=== PATIENT | male | born 1985 | race Caucasian/White ===

== ENCOUNTER 2022-06-22 22:09 | Outpatient (CLI) | payer SELFPAY | END 2022-06-22 22:10 | disposition home or self-care (01) | LOC: AMB 06-24 17:11 | PROVIDERS: Visit Provider Family Medicine | DX: R53.1 Weakness (principal); M62.838 Other muscle spasm; M25.511 Pain in right shoulder | CPT/HCPCS: A0998 ==

== ENCOUNTER 2024-04-08 11:21 | Emergency (ER) | payer OTHER, SELFPAY ==
[2024-04-08 11:25] VITALS: BP 118/75; PULSE 94; RESP 18; TEMP 37; O2SAT 96; BMI 21.0
--- NOTE | 2024-04-08 11:34 | ED_ITS ---
HPI - General Adult General Date Seen: 04/08/24 Chief complaint: Back Injury/Pain Stated complaint: back pain - injury at work Time Seen by Provider: 04/08/24 11:33 History of Present Illness HPI narrative: This is a 38-year-old male presenting to the ER today for pain in his back. It began yesterday while he was at work and got progressively worse yesterday evening and overnight. . 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 He does do lot of bending, twisting lifting. In particular he needs to move their roles of fluid that way about 100 lb. Known specific known injury but he thinks he might have twisted his back when moving a feral yesterday. If no fall. No blunt trauma. No injury at home. His nursing triage note indicates the pain started between his shoulder blades but that is not quite accurate. It started inferior to the shoulder blades in the central portion of his lower thoracic spine (he shows me during exam minutes roughly the level of T10-T12 and radiates from there down at the lumbar spine in particular just to the right of the midline on the right lumbar paraspinous muscles). It is worse whenever he twists his torso which limits his ability to rotate. It does not wrap around to the front of his abdomen or but onto his groin or testicles. The pain does not radiate down his legs. No associated numbness or weakness in his legs. Urination and bowel function have been normal. No fevers. He is here with his father who does have a long history of low back pain. The patient has never had previous pain were surgery on his back. He is not currently on any medications. No history of coagulopathy. No history of diabetes or immunosuppression. He is not yet taking anything for his pain. Related Data Home Medications ?Medication ?Instructions ?Recorded ?Confirmed albuterol 90 mcg/actuation aerosol mcg inhalation 04/08/24 inhaler Previous Rx's ?Medication ?Instructions ?Recorded cyclobenzaprine 10 mg tablet 10 mg PO TID PRN muscle spasm #14 04/08/24 tabs hydrocodone 5 mg-acetaminophen 325 1 tab PO Q4-6H PRN pain #14 tabs 04/08/24 mg tablet ibuprofen 600 mg tablet 600 mg PO Q8H PRN #20 tabs 04/08/24 Allergies Allergy/AdvReac Type Severity Reaction Status Date / Time No Known Drug Allergies Allergy Verified 04/08/24 11:30 Exam Narrative: Exam Narrative: Constitutional: Appears well-developed and well-nourished. Alert. Conversant. Non toxic. Father attentively at his side. HENT: Head: Atraumatic. Nose: Nose normal. Mouth/Throat: Oral mucosa is clear and moist. no trismus. Pharynx normal. Tonsils symmetric. No tonsillar enlargement, erythema, or exudate. Eyes: Conjunctivae normal. EOM normal. Pupils equal, round, and reactive to light. No scleral icterus. Neck: Normal range of motion. Neck supple. No tracheal deviation present. Cardiovascular: Normal rate, regular rhythm. No gallop. No friction rub. No murmur heard. Symmetric radial artery pulses Pulmonary/Chest: Effort normal. No stridor. No respiratory distress. No wheezes. No rales. No rhonchi . No tenderness. Abdominal: Soft. Bowel sounds normal. No distension. No mass. No tenderness. No rebound. No guarding. Musculoskeletal: Normal inspection of his back except for he does seem to have a visible swelling of his right lumbar paraspinous muscles were it appears to be spasming . I think the muscle is very visible because he has a very slender body habitus. He is directly tender over that paraspinous muscle. He has no midline tenderness or step-off of the cervical, thoracic, or lumbar spine. Posterior sacrum, SI joints, and posterior pelvis is nontender. Pelvis is stable. RUE: Normal range of motion. No tenderness. No deformity LUE: Normal range of motion. No tenderness. No deformity RLE: Normal range of motion. No edema. No tenderness. No deformity LLE: Normal range of motion. No edema. No tenderness. No deformity Neurological: Alert and oriented to person, place, and time. Normal strength. CN II-VII intact. No sensory deficit. GCS eye subscore is 4. GCS verbal subscore is 5. GCS motor subscore is 6. Normal coordination Sensory: Normal light touch sensation bilaterally on the anteromedial thigh (L3), medial malleolus (L4), dorsal first web space (L5), lateral malleolus (S1). Strength: 5/5 strength hip flexors (L3) on the rig ht and left 5/5 strength in the quadriceps (L4) on t he right and left 5/5 strength in the tibialis anterior 5/5 strength in the EHL (L5) on the righ t and left 5/5 strength in the gastrocnemius (S1) o n the right and left 5/5 strength in the hamstring on the rig ht and left Negative straight leg raise bilaterally. Skin: Skin is warm and dry. No rash noted. No pallor. Normal capillary refill. Psychiatric: Normal mood. Normal affect. Const: Vital Signs, click to edit/add: Vital Signs - 24 hr 04/08/24 11:25 Temperature 98.6 F Pulse Rate [Right Pulse Oximeter] 94 Respiratory Rate 18 Blood Pressure [Ri ght Upper Arm] 118/75 Pulse Oximetry 96 Oxygen Delivery Me thod Room Air Course Vital Signs Vital signs: Initial Vital Signs Temperature 98.6 F 04/08/24 11:25 Temperature Source Temporal Artery Scan 04/08/24 11:25 Pulse Rate 94 04/08/24 11:25 Respiratory Rate 18 04/08/24 11:25 Blood Pressure 118/75 04/08/24 11:25 Blood Pressure Mean 89 04/08/24 11:25 Blood Pressure Position Sitting 04/08/24 11:25 Pulse Oximetry 96 04/08/24 11:25 Oxygen Delivery Method Room Air 04/08/24 11:25 Vital Signs Temperature 98.6 F 04/08/24 11:25 Pulse Rate 94 04/08/24 11:25 Respiratory Rate 18 04/08/24 11:25 Blood Pressure 118/75 04/08/24 11:25 Pulse Oximetry 96 04/08/24 11:25 Oxygen Delivery Method Room Air 04/08/24 11:25 Temperature 98.6 F 04/08/24 11:25 Pulse Rate 94 04/08/24 11:25 Respiratory Rate 18 04/08/24 11:25 Blood Pressure 118/75 04/08/24 11:25 Pulse Oximetry 96 04/08/24 11:25 Oxygen Delivery Method Room Air 04/08/24 11:25 Medications Administered Medications: Discontinued Medications Generic Name Dose Route Start Last Admin Trade Name Freq PRN Reason Stop Dose Admin Hydrocodone Bitart/Acetaminophen 1 tab 04/08/24 12:14 04/08/24 12:29 Hydrocodone-Acetamin 5-325 Mg 1 Tab PO 04/08/24 12:15 1 tab ONCE ONE Administration Cyclobenzaprine HCl 10 mg 04/08/24 12:14 04/08/24 12:29 Cyclobenzaprine Hcl 10 Mg Tablet PO 04/08/24 12:15 10 mg ONCE ONE Administration Ibuprofen 600 mg 04/08/24 12:30 04/08/24 12:28 Ibuprofen 200 Mg Tablet PO 04/08/24 12:31 600 mg ONCE ONE Administration Medical Decision Making MDM Narrative Medical decision making narrative: This patient presented with back pain. Broad differential considered. The patient did not sustain any penetrating or blunt trauma, therefore x-rays are not necessary due to the low likelihood of fracture or subluxation. No red flag symptoms to suggest CT and/or MRI is indicated at this point. The patient has not had a fever, saddle/perineal anesthesia, bilateral foot numbness, or bowel or bladder dysfunction. There is no clinical evidence of cauda equina syndrome, discitis, spinal/epidural space hematoma or epidural abscess. Differential would also include kidney stone, it referred pain from gallbladder, aortic dissection, among others. The neurological exam is normal and the patient's symptoms seem consistent with a musculoskeletal issues and significant muscle spasm. He is quite tender over the right lumbar paraspinous muscles and does seem to have some visible muscle spasm there on exam. At this point I do not think he needs advanced imaging with CT or MRI. Pain has improved with interventions in the emergency department. The patient will be discharged with pain medications to use as directed. Ice or heat to the back and stretching exercises. No heavy lifting, bending or twisting. Return if increasing pain, numbness, weakness, or bowel or bladder dysfunction. The patient was advised to schedule follow-up with their primary doctor within 2-3 days to re-assess symptoms. Return precautions reviewed and questions answered. Prescriptions for ibuprofen 600 mg t.i.d., Flexeril 10 mg t.i.d. p.r.n., and Swisshome 1 tablet p.o. Q 4-6 hours p.r.n. opiate and sedation precautions reviewed. Discussed anticipated outpatient course, precautions for activities, need for follow-up. Precautions for return to the ER. Discharge Plan Discharge Clinical Impression: Back pain Patient Disposition: Home, Self-Care Condition: Stable Instructions: Back Pain (ED) Additional Instructions: As we discussed, to treat your back pain try to use ice packs or warm packs for 20 minutes every couple of hours. Try to use gentle activity and stretching to help stretch out the muscles in your back. Use ibuprofen or Tylenol as her 1st step for pain relief. If that is not adequate, use the muscle relaxer. Be careful with muscle relaxers because they can cause drowsiness and dizziness. If muscle x-rays are also not adequate, use the prescription opiate (Swisshome ). Use caution with Swisshome because it causes drowsiness, sedation, constipation, and can be addictive. Please take to light activity. No bending or twisting or lifting more than 5 lb. Notify your employer about your back problem Today. For not completely improved within the next 5-7 days, please recheck with your regular doctor ( or the [facility] if your employer indicates that is where he should go). as we discussed, please come back to the ER right away if you have any problems; especially if you have worsening or severe pain, numbness or weakness down her leg, trouble with bowel or bladder, pain wrapping around to the front of your chest or abdomen, fever. Prescriptions: New ibuprofen 600 mg tablet 600 mg PO Q8H PRNQty: 20 0RF hydrocodone-acetaminophen 5-325 mg tablet 1 tab PO Q4-6H PRN (Reason: pain) Qty: 14 0RF cyclobenzaprine 10 mg tablet 10 mg PO TID PRN (Reason: muscle spasm) Qty: 14 0RF No Action albuterol 90 mcg/actuation aerosol inhalation Stand Alone Forms: [facility] Info Instructions
[2024-04-08] MEDS: IBUPROFEN 200 MG TABLET 600 MG PO (12:28)
[2024-04-08] MEDS: CYCLOBENZAPRINE HCL 10 MG TABLET PO (12:29)
[2024-04-08] MEDS: HYDROCODONE-ACETAMIN 5-325 MG 1 TAB PO (12:29)
== END 2024-04-08 13:06 | disposition home or self-care (01) ==
LOC: ED 12:31
PROVIDERS: Emergency Provider Emergency Medicine
DX: M54.9 Dorsalgia, unspecified (principal)
CPT/HCPCS: 99283; 99284; A9270

== ENCOUNTER 2025-01-29 07:35 | Emergency (ER) | payer OTHER, SELFPAY ==
--- OUTSIDE RECORDS SUMMARY | 2025-01-29 07:37 | XMS_ITS | Clinical Summary ---
Author Organization [facility] Address [address] [place] [id number] Care Team Providers Care Ventilating Engineer Name Role Phone Juju Oleary MD Primary Care Provider [phone] Allergies No known active allergies Medications * This document contains information received from the source organization and may not represent a complete record from that organization. NebulizerIndicati ons:Mild intermittent asthma with acute exacerbation (HC) Nebulizer neb kit x 1dx [id number] 1 Device 7 Active fluticasone (FLOVENT HFA) 110 mcg/Actuation inhalerIndication s:Moderate persistent asthma with exacerbation (HC) Inhale 1 Puff by mouth 2 times daily. 1 Inhaler 7 Active albuterol HFA (PROAIR HFA) 90 mcg/actuation inhalerIndication s:Moderate persistent asthma without complication (HC) Inhale 2 Puffs by mouth every 4 hours if needed. Use with spacer 1 Inhaler 5 8 Active naproxen (NAPROSYN) 500 mg tabletIndications :Acute bilateral low back pain without sciatica Take 1 tablet by mouth 2 times daily with meals. 30 tablet 1 9 Active cyclobenzaprine (FLEXERIL) 5 mg tabletIndications :Acute bilateral low back pain without sciatica Take 1-2 tablets by mouth 3 times daily if needed for Muscle Spasm. 30 tablet 9 Active albuterol-ipratro pium (DUONEB) (2.5-0.5 mg) in 3 mL NEBULIZATION solutionIndicatio ns:Moderate persistent asthma with exacerbation (HC) Inhale 3 mL via a nebulizer every 6 hours. 1 box 0 Active gabapentin (NEURONTIN) 100 mg capsuleIndication s:Pain in testicle, unspecified laterality Take 1 Capsule (100 mg) by mouth 3 times daily. 90 Capsule 1 1 Active meloxicam 15 mg tabletIndications :Pain in testicle, unspecified laterality Take 1 Tablet (15 mg) by mouth once daily. 30 Tablet 2 1 Active fluticasone propionate (FLOVENT DISKUS) 100 mcg/actuation inhalerIndication s:Moderate persistent asthma with exacerbation (HC) Inhale 1 Puff by mouth 2 times daily. 60 Each 5 2 Active tolterodine (DETROL LA) 2 mg Extended-Release capsuleIndication s:Pelvic floor dysfunction Take 1 Capsule (2 mg) by mouth once daily. 30 Capsule 11 3 Active Active Problems Problem Noted Date Diagnosed Date Smoker 11/02/2015 Anxiety 03/06/2011 Unspecified asthma(493.90) 01/29/2011 Encounters Date Type Department Care Team Description 01/29/2025 Nurse Triage [facility] [address] [place] [address] Juju Oleary MD Breathing Problem from Last 3 Months Immunizations Immunization Administration Dates Next Due Hepatitis B, Unspecified 06/08/1998 Influenza A (H1N1), Inactivated 12/21/2009 MMR 06/08/1998 Pneumococcal Poly,23-Valent (Pneumovax) 03/21/2012 Td (Age >=7 Years) 06/08/1998 Td, Preservative Free (age > = 7 Years) 03/31/2019 Tdap 06/09/2017, 1,07/23/2010,2009,05/11/2007 Family History Medical History Relation Name Comments Diabetes Brother half brother Cancer Father pancreatic canc er Relation Name Status Comments Brother Father Social History Tobacco Use Types Packs/Day Years Used Date Smoking Tobacco: Every Day Cigarettes Smokeless Tobacco: Never Tobacco Cessation:Ready to Q uit: No; Counseling Given: Yes Comments:declined Alcohol Use Standard Drinks/Week Comments Yes 28 (1 standard drink = 0.6 oz pu re alcohol) PHQ-2 Answer Date Recorded PHQ-2 TOTAL SCORE 1 05/29/2021 Social Connections Answer Date Recorded Frequency of Communication with Friends and Fami ly Not on file 10/28/2021 Financial Resource Strain Answer Date R ecorded Difficulty of Paying Living Expenses Not on file 10/28/2021 Difficulty of Paying Living Expenses Not on file 10/28/2021 Sex and Gender Information Value Date Recorded Sex Assigned at Not on file 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 Gender Identity Not on file Sexual Orientation Not on file Occupation Industry Job Start Date Job End Date Not on file Not on file Not on file Not on file Obstetrics History Last Filed Vital Signs Vital Sign Reading Time Taken Comments Blood Pressure 128/74 02/10/2023 6:03 PM CDT Pulse 81 02/10/2023 6:03 PM CDT Temperature 36.7 C (98.1 F) 02/10/2023 6:03 PM CDT Respiratory Rate 16 02/10/2023 6:03 PM CDT Oxygen Saturation 99% 02/10/2023 6:03 PM CDT Inhaled Oxygen Concentration - - Weight 70.3 kg (155 lb) 02/10/2023 6:03 PM CDT Height 182.9 cm (6') 02/10/2023 6:03 PM CDT Body Mass Index 21.02 02/10/2023 6:03 PM CDT Plan of Treatment Health Maintenance Due Date Last Done Comments Pneumococcal series for age 6-49 (2 of 2 - PCV) 03/21/2013 03/21/2012 Lipids for age 35-44 2021 Depression screening for age 12+ 05/29/2022 05/29/2021, 09/03/2019, 08/31/2019, Additional history exists BMI (ht and wt on same day) for age 18+ 12/04/2022 12/04/2021, 08/01/2020, 07/25/2020, Additional history exists COVID-19 vaccine series ( season) 2024 Influenza Vaccine (Season Ended) 2025 Tetanus booster 03/31/2029 03/31/2019, 05/28, 02/24/2011, Additional history exists Tdap Completed 06/09/2017, 01/28, 07/23/2010, Additional history exists Hepatitis C screening for ag e 18-79 Completed 01/17/2018 HIV for age 15-65 Completed 05/29/2021, , 01/07/2017 Procedures Procedure Name Priority Date/Time Associated Diagnosis Comments ANTI HIV 1/2 Routine 05/29/2021 11:10 AM CDT Urinary frequency ANTI HCV Routine 01/17/2018 5:22 PM CDT Screen for STD (sexually transmitted disease) from Last 3 Months or Most Recently Relevant to Health Maintenance Results * ANTI HIV 1/2 (05/29/2021 11:10 AM CDT) [facility] HIV-1/HIV-2 ANTIBODY Non-Reacti ve Non-Reacti ve 05/29/2021 6:14 PM CDT [facility] Comment:HIV-1 p24 and HIV-1/ HIV-2 Ab not detected. Blood BLOOD SPECIMEN / Unknown Venipuncture / Unknown 05/29/2021 11:10 AM CDT 05/29/2021 11:10 AM CDT us Vivian Xavier MD SEND OUTS Final Resul t [facility] [address] [place] [address], * ANTI HCV (01/17/2018 5:22 PM CDT) [facility] HEPATITIS C ANTIBODY Non-React tara Non-React tara 01/18/2018 5:21 PM CDT [facility] Comment:Antibodies to HCV no t detected; does not exclude the possibility of exposure to HCV. Blood BLOOD SPECIMEN / Unknown Venipuncture / Unknown 01/17/2018 5:22 PM CDT 01/17/2018 5:22 PM CDT us William Willard DO SEND OUTS Final Result [facility] [address] [place] [address], from Last 3 Months or Most Recently Relevant to Health Maintenance Insurance [address] [place] [id number] [place] [id number] [place] [id number] [place] [address] Advance Directives * Full Code (Latest Code Status on File) Date Activated Date Inactivated Comments 05/11/2007 4:42 AM 05/11/2007 2:17 PM Care Teams Ventilating Engineer Relationship Specialty Start Date End Date Juju Oleary MD [address] [facility] [place] [id number] PCP - General Family Practice 08/31/19
[2025-01-29 07:42] VITALS: BP 156/97; PULSE 83; RESP 18; TEMP 37.2; O2SAT 99
--- NOTE | 2025-01-29 07:55 | CRLHL7_ITS ---
For Patients: As a result of the Cures Act, medical imaging exams and procedure reports are released immediately into your electronic medical record. You may view this report before your referring provider. If you have questions, please contact your health care provider. Indication: Shortness of breath Technique: Chest 2 views Comparison: None Findings/Impression: Cardiovascular and mediastinum: Heart size and vasculature are normal in caliber and appearance. Mediastinum is within normal limits. Lungs and pleural spaces: Lungs are clear. No sign of infiltrate or mass. No sign of pleural effusion. No pneumothorax. Bones and soft tissues: Mild rightward curvature thoracic spine. Old healed left mid clavicular fracture. Dictated by Nickolas Dickinson MD @ 01/29/2025 8:22:17 AM (Electronically Signed)
--- NOTE | 2025-01-29 07:58 | ED_ITS ---
HPI - General Adult General Chief complaint: Headache/Migraine Stated complaint: headache/chest pain Time Seen by Provider: 01/29/25 07:51 History of Present Illness HPI narrative: Patient is a 39-year-old gentleman who comes in today with a several days of headaches general malaise body aches fatigue cough shortness of breath. He states headache is primarily on the right side with extensive from the posterior occiput to the right anabaptism. He has had no fevers no chills no night sweats no stiff neck no nausea no vomiting. Did have some intermittent chest pain yesterday which has resolved. Patient is otherwise healthy and he takes no medication. No other significant history. Related Data Home Medications ?Medication ?Instructions ?Recorded ?Confirmed albuterol 90 mcg/actuation aerosol mcg inhalation 04/08/24 inhaler Previous Rx's ?Medication ?Instructions ?Recorded ibuprofen 600 mg tablet 600 mg PO Q8H PRN #20 tabs 04/08/24 Allergies Allergy/AdvReac Type Severity Reaction Status Date / Time No Known Drug Allergies Allergy Verified 01/29/25 07:46 Review of Systems Status of ROS: Reports: 10 or more systems reviewed and unremarkable except as noted in History and below Exam Narrative: Exam Narrative: EXAM GENERAL: Patient appears comfortable and well. EYES: No scleral icterus. LYMPH: No supraclavicular or cervical lymphadenopathy. SKIN: Visible skin seen during exam normal or with benign process only. EXT: No dependent lower extremity pedal edema. HEART: Regular rate and rhythm with no murmurs, rubs, or gallops. LUNGS: Clear to auscultation bilaterally with no crackles or wheezes. ABD: Soft, non tender, non distended. PSYCH: Good eye contact, speech is not pressured. Const: Vital Signs, click to edit/add: Vital Signs - 24 hr 01/29/25 07:42 Temperature 98.9 F Pulse Rate [Right Pulse Oximeter] 83 Respiratory Rate 18 Blood Pressure [Ri ght Upper Arm] 156/97 H Pulse Oximetry 99 Oxygen Delivery Me thod Room Air Course Course ED Course: Patient seen and examined. Workup chest x-ray EKG pending. Normal saline given as well as Toradol Zofran and Benadryl. Vital Signs Vital signs: Initial Vital Signs Temperature 98.9 F 01/29/25 07:42 Temperature Source Temporal Artery Scan 01/29/25 07:42 Pulse Rate 83 01/29/25 07:42 Pulse Rhythm Regular 01/29/25 07:42 Pulse Strength 3+ Normal 01/29/25 07:42 Respiratory Rate 18 01/29/25 07:42 Blood Pressure 156/97 H 01/29/25 07:42 Blood Pressure Mean 116 H 01/29/25 07:42 Blood Pressure Position Sitting 01/29/25 07:42 Pulse Oximetry 99 01/29/25 07:42 Oxygen Delivery Method Room Air 01/29/25 07:42 Vital Signs Temperature 98.9 F 01/29/25 07:42 Pulse Rate 83 01/29/25 07:42 Respiratory Rate 18 01/29/25 07:42 Blood Pressure 156/97 H 01/29/25 07:42 Pulse Oximetry 99 01/29/25 07:42 Oxygen Delivery Method Room Air 01/29/25 07:42 Temperature 98.9 F 01/29/25 07:42 Pulse Rate 83 01/29/25 07:42 Respiratory Rate 18 01/29/25 07:42 Blood Pressure 156/97 H 01/29/25 07:42 Pulse Oximetry 99 01/29/25 07:42 Oxygen Delivery Method Room Air 01/29/25 07:42 Medications Administered Medications: Discontinued Medications Generic Name Dose Route Start Last Admin Trade Name Stephen PRN Reason Stop Dose Admin Diphenhydramine HCl 25 mg 01/29/25 07:55 01/29/25 08:23 Diphenhydramine 50 Mg/Ml Inj IVP 01/29/25 07:56 25 mg ONCE ONE Administration Sodium Chloride 1,000 mls @ 1,000 mls/hr 01/29/25 07:57 01/29/25 08:22 0.9 % Sodium Chloride 1000 Ml IV 01/29/25 08:56 1,000 mls/hr .Q1H NIKOS Administration Ketorolac Tromethamine 30 mg 01/29/25 07:55 01/29/25 08:23 Ketorolac 30 Mg/Ml Inj IVP 01/29/25 07:56 30 mg ONCE ONE Administration Ondansetron HCl 4 mg 01/29/25 07:55 01/29/25 08:22 Ondansetron 2 Mg/Ml Inj IVP 01/29/25 07:56 4 mg ONCE ONE Administration Medical Decision Making MDM Narrative Medical decision making narrative: Patient presents with headache and constitutional symptoms. I did do a thorough evaluation. We are unable to do a D-dimer due to coagulation issues with the laboratory. Troponin EKG chest x-ray CBC basic metabolic panel all normal. I did give him L of normal saline 25 mg of IV Benadryl 30 mg of Toradol and 4 mg of Zofran with improvement of his symptoms. This time I did offer reassurance differential diagnosis includes but not limited to pneumonia congestive heart failure viral syndrome. Of note his triple swab is negative. Will have a rotate Tylenol Motrin get plenty of rest plenty fluids follow-up with his primary physician as needed. Lab Data Labs: Lab Results 01/29/25 Range/Units 08:23 WBC 5.00 (4.50-11.00) K/uL RBC 4.83 (4.30-5.90) m/uL Hgb 15.6 (13.5-17.5) gm/dL Hct 45.2 (37.0-53.0) % MCV 94 (80-100) fL MCH 32 (26-34) pg MCHC 35 (32-36) gm/dL RDW Coeff of José 11.5 (11.5-15.5) % Plt Count 324 (140-440) K/uL Neut % (Auto) 69.8 (42.0-72.0) % Lymph % (Auto) 18.6 L (20-44) % [place] % (Auto) 7.6 (0.0-11.0) % Eos % (Auto) 3.4 (0.0-7.0) % Baso % (Auto) 0.4 (0.0-3.0) % Neut # (Auto) 3.49 (1.7-7.0) K/uL Lymph # (Auto) 0.90 (0.90-2.90) K/uL [place] # (Auto) 0.40 (0.00-0.90) K/UL Eos # (Auto) 0.17 (0.00-0.50) K/uL Baso # (Auto) 0.02 (0.00-0.30) K/uL Abs Immat Gran (auto) 0.01 (0.00-0.30) K/uL Imm/Tot Granulo (auto) 0.2 % Sodium 135 (135-149) mmol/L Potassium 3.9 (3.6-5.1) mmol/L Chloride 101 (96-114) mmol/L Carbon Dioxide 27 (20-32) mmol/L Anion Gap 7 (7-15) mEq/L BUN 8 (5-24) mg/dL Creatinine 0.7 (0.5-1.5) mg/dL Estimated GFR 121 ml/min Glucose 131 H (60-115) mg/dL Calcium 9.8 (8.4-10.6) mg/dL Troponin I < 0.01 (0.01-0.04) ng/mL SARS-CoV-2 (PCR) Negative SARS-CoV-2 (Negative) Influenza Type A (PCR) Negative PCR FLU A (Negative) Influenza Type B (PCR) Negative PCR FLU B (Negative) RSV (PCR) Negative PCR RSV (Negative) Discharge Plan Discharge Clinical Impression: Acute viral syndrome Patient Disposition: Home, Self-Care Condition: Stable Instructions: Viral Syndrome (ED) Additional Instructions: Tylenol Motrin Rest Fluids Follow-up with your doctor as needed. Activity Level: No Restrictions Discharge Diet: Regular Prescriptions: No Action albuterol 90 mcg/actuation aerosol inhalation ibuprofen 600 mg tablet 600 mg PO Q8H PRNQty: 20 0RF Follow Up/Referrals: Provider,Not a Local [Primary Care Provider] - Stand Alone Forms: [email or web address] Info Instructions
[2025-01-29] MEDS: ONDANSETRON 2 MG/ML inj 4 MG IVP (08:22)
[2025-01-29] MEDS: 0.9 % SODIUM CHLORIDE 1000 ml 1,000 ML IV (08:22)
[2025-01-29] MEDS: diphenhydrAMINE 50 MG/ML inj 25 MG IVP (08:23)
[2025-01-29] MEDS: KETOROLAC 30 MG/ML inj IVP (08:23)
--- OUTSIDE RECORDS SUMMARY | 2025-01-29 08:23 | XMS_ITS | Clinical Summary ---
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 NebulizerIndicati ons:Mild intermittent asthma with acute exacerbation (HC) Nebulizer neb kit x 1dx [id number] 1 Device 7 Active fluticasone (FLOVENT HFA) [...] Department Care Team Description 01/29/2025 Nurse Triage [facility] [address] [place] [address] Juju Oleary MD Breathing Problem from Last [...] on file Legal Sex Male 5:45 AM [employer] Gender Identity Not on file Sexual Orientation [...] ANTI HIV 1/2 (05/29/2021 11:10 AM CDT) [facility] HIV-1/HIV-2 ANTIBODY Non-Reacti ve Non-Reacti ve 05/29/2021 6:14 PM CDT [facility] Comment:HIV-1 p24 and HIV-1/ HIV-2 Ab not detected. Blood BLOOD SPECIMEN / Unknown Venipuncture / Unknown 05/29/2021 11:10 AM CDT 05/29/2021 11:10 AM CDT us Vivian Xavier MD SEND OUTS Final Resul t [facility] [address] [place] [address], * ANTI HCV (01/17/2018 5:22 PM CDT) [facility] HEPATITIS C ANTIBODY Non-React tara Non-React tara 01/18/2018 5:21 PM CDT [facility] Comment:Antibodies to HCV no t detected; does not exclude the possibility of exposure to HCV. Blood BLOOD SPECIMEN / Unknown Venipuncture / Unknown 01/17/2018 5:22 PM CDT 01/17/2018 5:22 PM CDT us William Willard DO SEND OUTS Final Result [facility] [address] [place] [address], from Last 3 Months or Most Recently Relevant to Health Maintenance Insurance [address] [place] [id number] [place] [id number] [place] [id number] 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
[2025-01-29 08:35] LABS: Basophils Absolute Auto 0.02 K/uL (0.00-0.30); Basophils Percent Auto 0.4 % (0.0-3.0); Eosinophils Absolute Auto 0.17 K/uL (0.00-0.50); Eosinophils Percent Auto 3.4 % (0.0-7.0); Hematocrit 45.2 % (37.0-53.0); Hemoglobin* 15.6 gm/dL (13.5-17.5); Immature Granulocytes Abs Auto 0.01 K/uL (0.00-0.30); Immature Granulocytes Pct Auto 0.2 %; Lymphocytes Percent Auto 18.6 % (20-44); Mean Corpuscular HGB Conc 35 gm/dL (32-36); Mean Corpuscular Hemoglobin 32 pg (26-34); Mean Corpuscular Volume 94 fL (80-100); Monocytes Percent Auto 7.6 % (0.0-11.0); Neutrophils Absolute Auto 3.49 K/uL (1.7-7.0); Neutrophils Percent Auto 69.8 % (42.0-72.0); Platelet Count* 324 K/uL (140-440); RDW Coefficient of Variation % 11.5 % (11.5-15.5); Red Blood Count 4.83 m/uL (4.30-5.90)
[2025-01-29 08:37] LABS: Slide Review Reflex No
[2025-01-29 08:55] LABS: Chloride* 101 mmol/L (96-114); Potassium* 3.9 mmol/L (3.6-5.1); Sodium* 135 mmol/L (135-149)
[2025-01-29 08:58] LABS: Anion Gap 7 mEq/L (7-15); Blood Urea Nitrogen* 8 mg/dL (5-24); Calcium* 9.8 mg/dL (8.4-10.6); Carbon Dioxide* 27 mmol/L (20-32); Creatinine* 0.7 mg/dL (0.5-1.5); Estimated Glomerular Filt Rate 121 ml/min; Glucose* 131 mg/dL (60-115)
[2025-01-29 09:13] LABS: Troponin I* < 0.01 ng/mL (0.01-0.04)
[2025-01-29 09:14] LABS: PCR FLU A Negative PCR FLU A (Negative); PCR FLU B Negative PCR FLU B (Negative); PCR RSV Negative PCR RSV (Negative); SARS PCR* Negative SARS-CoV-2 (Negative)
[2025-01-29 13:47] LABS: D Dimer Quantitative* < 0.27 ug/ml (0.00-0.50)
== END 2025-01-29 09:24 | disposition home or self-care (01) ==
PROVIDERS: Emergency Provider Internal Medicine
DX: R51.9 Headache, unspecified (principal); B34.9 Viral infection, unspecified
CPT/HCPCS: 36415; 71046; 80048; 84484; 85025; 85379; 87631; 93005; 96374; 96375; 99283; 99284; 99285; J1200; J1885; J2405; J7030